=== PATIENT | male | born 1980 | race Caucasian/White ===

== ENCOUNTER 2022-03-30 20:56 | Emergency (ER) | payer OTHER, SELFPAY ==
[2022-03-30 21:15] VITALS: BP 141/81; PULSE 74; RESP 16; TEMP 36.9; O2SAT 97; BMI 27.8
[2022-03-30 21:31] VITALS: BP 139/95; PULSE 70; O2SAT 96
[2022-03-30 21:31] LABS: Microscopic, Urine URINE MICROSCOPIC (MICROSCOPIC)
[2022-03-30 21:33] LABS: Chloride 107 mmol/L (98-107); Sodium 140 mmol/L (136-145)
--- NOTE | 2022-03-30 21:33 | HMH.EDGENADL ---
ED Disposition Clinical Impression: Diverticulitis Disposition: Home, Self-Care Condition on Discharge: Fair Instructions: DI for Diverticulitis Additional Instructions: You have been evaluated for abdominal pain, diagnosed with diverticulitis. Please take antibiotics as prescribed, ciprofloxacin and Flagyl. Take ibuprofen for pain. [place] for extreme pain. Zofran for nausea. Follow a clear liquid diet. Monitor your symptoms closely. Follow-up with your primary care doctor in 1 to 2 days for symptom recheck. Follow-up with general surgery in clinic this week. Return to the emergency department for any new or worsening symptoms. Prescriptions: Hydrocod/Acet 5/325 mg [[place] 5/325mg tablet] 1 tab PO Q6HP PRN #6 tab PRN Reason: Severe Pain Transmission Status: Sent to [facility] # ondansetron HCL [Ondansetron 4mg tab*] 4 mg PO Q6HP PRN #12 tab PRN Reason: Nausea Transmission Status: Pending to [facility] # Ciprofloxacin HCl [Ciprofloxacin 250mg Tab] 500 mg PO BID #20 tab Transmission Status: Pending to [facility] # metroNIDAZOLE [metroNIDAZOLE 500mg Tablet] 500 mg PO Q8 #15 tab Transmission Status: Pending to [facility] # Referrals: Alexandr Whitehead APRN [Primary Care Provider] - Jaden Uribe MD [Staff Physician] - Time of Disposition: 23:08 - Critical Care Critical Care Time: No Attestation: On 03/30/22, the high probability of a clinically significant, sudden or life threatening deterioration of the following system(s) required my full and direct attention, intervention and personal management. The time I documented below is in addition to time spent performing reported procedures but includes the following listed in this critical care notation. Medical Decision Making - Medical Records Medical records reviewed: Yes: I reviewed the patient's medical records. - Earnest Inquiry Pt receiving controlled substance: No Vital Signs: 03/30/22 21:15 Temperature 98.4 F Temperature Source Oral Pulse Rate [Left Radial] 74 Respiratory Rate 16 Blood Pressure [Right Arm] 141/81 H Blood Pressure Mean [Right Arm] 101 Blood Pressure Source [Right Arm] Automatic Cuff Blood Pressure Position [Right Arm] Sitting 02 Sat by Pulse Oximetry 97 Oxygen Delivery Method Room Air - Lab Data Lab Results 03/30/22 21:18: Urine Color Yellow, Urine Appearance Clear, Urine pH 6.0, Ur Specific [place] 1.020, Urine Protein Negative, Urine Glucose (UA) Negative, Urine Ketones Negative, Urine Blood Trace-i, Urine Nitrate Negative, Urine Bilirubin Negative, Urine Urobilinogen 0.2, Ur Leukocyte Esterase Negative, Urine RBC Occasional, Urine WBC None, Ur Squamous Epith Cells Occasional, Urine Bacteria None 03/30/22 21:18: WBC 9.7, RBC 4.27 L, Hgb 13.3 L, Hct 41.0 L, MCV 96.0 H, MCH 31.1, MCHC 32.4, RDW 13.2, Plt Count 271, MPV 7.2 L, Neut % (Auto) 66.0, Lymph % (Auto) 23.7, [place] % (Auto) 8.1, Eos % (Auto) 1.4, Baso % (Auto) 0.8, Neut # (Auto) 6.4, Lymph # (Auto) 2.3, [place] # (Auto) 0.8, Eos # (Auto) 0.1, Baso # (Auto) 0.1 03/30/22 21:18: Sodium 140, Potassium 3.9, Chloride 107, Carbon Dioxide 26, Anion Gap 10.9, BUN 17, Creatinine 1.10, Estimated Creat Clear 117, Estimated GFR 74, Est GFR ( Amer) 90, Glucose 109 H, Calcium 9.3, Total Bilirubin 0.2, AST 42, ALT 37, Alkaline Phosphatase 80, Total Protein 7.5, Albumin 4.6, Globulin 2.9, Albumin/Globulin Ratio 1.6, Lipase 85 03/30/22 21:33: SARS-CoV-2 (PCR) Not detected, Influenza A Untype (PCR) Not detected, Influenza Type B (PCR) Not detected Result diagrams: 03/30/22 21:18 03/30/22 21:18 Orders (Tests/Meds): ED MEDICATIONS Generic Name Dose Route Start Last Admin Trade Name Freq PRN Reason Stop Dose Admin Sodium Chloride 10 ml 03/30/22 21:20 03/30/22 21:42 Sodium Chloride 0.9% 10ml Flush Syringe IV 04/29/22 21:19 10 ml NEEDED PRN Administration Maintain IV Site Discontinued Medicati
[2022-03-30 21:34] LABS: Basophils # 0.1 K/mm3 (0-0.2); Basophils % 0.8 % (0.1-2.0); Eosinophils # 0.1 K/mm3 (0.0-0.4); Eosinophils % 1.4 % (0.1-12.0); Hemoglobin 13.3 g/dL (14.1-18.0); Lymphocytes # 2.3 K/mm3 (0.7-4.5); Lymphocytes % 23.7 % (10-50); Mean Corpuscular HGB Conc 32.4 g/dL (31.8-35.4); Mean Corpuscular Hemoglobin 31.1 pg (27.0-31.2); Mean Platelet Volume 7.2 fl (7.4-10.4); Monocytes # 0.8 K/mm3 (0.1-1.0); Monocytes % 8.1 % (1.7-9.3); Neutrophils # 6.4 K/mm3 (1.8-7.8); Platelet Count 271 K/mm3 (142-424); Potassium 3.9 mmoL/L (3.5-5.1); Red Blood Count 4.27 M/mm3 (4.60-6.20); Red Cell Distribution Width 13.2 % (11.5-17.5); White Blood Count 9.7 K/mm3 (4.8-10.8)
[2022-03-30 21:35] LABS: Appearance,Urine CLEAR (Clear); Bilirubin,Urine Negative (Negative); Blood, Urine TRACE-I (Negative); Color,Urine YELLOW (Yellow); Glucose,Urine (UA) Negative (Negative); Ketones,Urine Negative (Negative); Leukocyte Esterase,Urine Negative (Negative); Nitrate,Urine Negative (Negative); Protein,Urine Negative (Negative); Urobilinogen,Urine 0.2 EU/dl (0.2)
[2022-03-30 21:35] LABS: Coronavirus 19, PCR Not Detected (NotDetected); Influenza A, PCR Not Detected (NotDetected); Influenza B, PCR Not Detected (NotDetected)
[2022-03-30 21:36] LABS: Alanine Aminotransferase 37 U/L (12-78); Albumin Level 4.6 g/dl (3.5-5.0); Albumin/Globulin Ratio 1.6 (1.1-1.8); Alkaline Phosphatase 80 U/L (38-126); Anion Gap 10.9 mEq/L (5-15); Aspartate Amino Transferase 42 U/L (17-59); Bilirubin,Total 0.2 mg/dl (0.2-1.3); Blood Urea Nitrogen 17 mg/dl (9-20); Calcium 9.3 mg/dl (8.4-10.2); Carbon Dioxide 26 mmol/L (22.0-30.0); Creatinine Clearance Estimated 117 mL/min (50-200); Estimated Glomerular Filt Rate 74 ml/min (>60); GFR (African American) 90 ML/MIN (>60); Globulin 2.9 g/dL (1.3-3.2); Glucose 109 mg/dl (74-100); Lipase 85 U/L (23-300); Total Protein,Serum 7.5 g/dl (6.3-8.2)
--- NOTE | 2022-03-30 21:36 | CT_ITS ---
PROCEDURE INFORMATION: Exam: CT Abdomen And Pelvis With Contrast Exam date and time: 03/30/2022 9:46 PM Age: 42 years old Clinical indication: Abdominal pain; Localized; Right lower quadrant (rlq); Additional info: Rlq pain TECHNIQUE: Imaging protocol: Computed tomography of the abdomen and pelvis with contrast. Radiation optimization: All CT scans at this facility use at least one of these dose optimization techniques: automated exposure control; mA and/or kV adjustment per patient size (includes targeted exams where dose is matched to clinical indication); or iterative reconstruction. Contrast material: ISOVUE; Contrast volume: 75 ml; Contrast route: IV; COMPARISON: No relevant prior studies available. FINDINGS: Diaphragm: Small hiatal hernia. Liver: Tiny cysts in the right lobe of the liver. Gallbladder and bile ducts: Normal. No calcified stones. No ductal dilation. Pancreas: Normal. No ductal dilation. Spleen: Normal. No splenomegaly. Adrenal glands: Normal. No mass. Kidneys and ureters: Normal. No hydronephrosis. Stomach and bowel: There is acute diverticulitis involving the sigmoid colon with wall thickening, diverticula and surrounding inflammatory changes. No small bowel obstruction. Appendix: No evidence of appendicitis. Intraperitoneal space: Unremarkable. No free air. No significant fluid collection. Vasculature: Unremarkable. No abdominal aortic aneurysm. Lymph nodes: Unremarkable. No enlarged lymph nodes. Urinary bladder: Unremarkable as visualized. Reproductive: Unremarkable as visualized. Bones/joints: Unremarkable. No acute fracture. Soft tissues: Unremarkable. IMPRESSION: Acute sigmoid diverticulitis. No perforation or abscess.
[2022-03-30 22:00] VITALS: BP 141/98; PULSE 69; O2SAT 97
[2022-03-30 22:00] LABS: RBC,Urine Occasional #/hpf (0-3); Squamous Epithelial Cell,Urine Occasional #/hpf (0-5)
[2022-03-30 22:30] VITALS: BP 132/90; PULSE 65; O2SAT 97
[2022-03-30 23:00] VITALS: BP 122/82; PULSE 61; RESP 16; TEMP 36.9; O2SAT 97
[2022-03-30 23:01] VITALS: BP 122/62; PULSE 62; RESP 16; TEMP 36.9; O2SAT 98
== END 2022-03-30 23:25 | disposition home or self-care (01) ==
PROVIDERS: Emergency Provider Emergency Medicine; PCP Nurse Practitioner Family
DX: K57.32 Diverticulitis of large intestine without perforation or abscess without bleeding (principal)
CPT/HCPCS: 74177; 80053; 81001; 83690; 85025; 96374; 99284; C9803; Q9967; U0003; U0005

== ENCOUNTER → 2022-05-27 11:39 | Outpatient (CLI) | payer OTHER, SELFPAY ==
[2022-05-27 11:46] VITALS: BMI 26.4
== END | disposition home or self-care (01) ==
PROVIDERS: PCP Nurse Practitioner Family; Visit Provider Nurse Practitioner Family
DX: Z02.1 Encounter for pre-employment examination (principal)
CPT/HCPCS: 86580

== ENCOUNTER 2023-01-26 10:59 | Outpatient (RCR) | payer OTHER, SELFPAY ==
--- NOTE | 2023-01-26 13:05 | HMH.OTOPEV ---
OT Inpatient Evaluation Rehab OT Outpatient Eval Start: 01/26/23 12:14 Freq: Status: Active Protocol: Document 01/26/23 12:14 ILANLATASHA (Rec: 01/26/23 12:57 CHELSEYTAMIKO [id number]) E-signed By Luanne Bruno, OT Outpatient Therapy Subjective History Subjective History 42 year male referred to OP OT services for B lateral epicondylitis for the past 12- 13 years, however the pain has increased for the past 1-2 months. B UE elbow AROM is WNL . Chief Complaint Pain Symptom Type Ache Symptoms Relieved By Nothing Symptoms Aggravated By Physical Activity Prior Functional Limitations None Current Functional Limitations Recreation Activity Level of pain today (0-10) 2 Pain scale - at its best (0-10) 2 Pain scale - at its worst (0-10) 7 Wrist/Hand Eval Concrete Vibrator Operator/Pinch Strength Right Concrete Vibrator Operator Strength Measurement (lbs) 110 Left Concrete Vibrator Operator Strength Measurement (lbs) 130 OT Outpatient Assessment Impairments Problems/Impairments Subjective C/O Pain Prognosis Rehab Potential Good Clinical Impression Consistent with Diagnosis Yes Short Term Goals Number of Weeks 2 Decrease Subjective C/O Pain Yes: 6/10 pain at worst Alf Goals Number of Weeks 4 Decrease Subjective C/O Pain Yes: 5/10 pain at worst Outpatient Therapy Plan of Care Treatment Plan May Include Therapeutic Exercise Including Home Yes Exercise Program Manual Therapy Techniques Yes Therapeutic Activities to Return to Yes Previous Functional/Work Level Thermal Modalities Yes Electrical Stimulation Yes Ultrasound/Phonophoresis Yes Iontophoresis Yes Eval/Re-Eval Yes Aquatic Therapy Yes Frequency Times per week 1-2x/wk Duration Number of Weeks 4 weeks Addendums This patient is a candidate for social No or vocational rehab? Patient/Guardian verbally acknowledges Yes understanding of treatment program and consents to further treatment? Patient/Guardian verbally acknowledges Yes understanding of diagnosis, prognosis and goals for treatment? G -code Required No Eval Complexity OT Charge 00211 - Low Complexity Shoulder/Elbow Eval Shoulder Objective Measurements Elbow Objective Measurements PHYSICIAN CERTIFICATION: I certify the specified therapy services for Arsalan Moy Francisco are required, authorized, and reviewed every 30 days.
== END 2023-01-26 11:00 | disposition home or self-care (01) ==
LOC: OT 10:59
PROVIDERS: Visit Provider Nurse Practitioner Family
DX: M77.12 Lateral epicondylitis, left elbow (principal); M77.11 Lateral epicondylitis, right elbow
CPT/HCPCS: 97165

== ENCOUNTER 2023-12-20 12:31 | Emergency (ER) | payer SELFPAY ==
[2023-12-20 12:33] VITALS: BP 146/104; PULSE 78; RESP 18; TEMP 36.6; O2SAT 100; BMI 24.4
--- NOTE | 2023-12-20 12:43 | PC.NURSE ---
dr gupta at bedside
--- NOTE | 2023-12-20 13:03 | HMH.EDGENADL ---
Discharge Plan Disposition Patient Disposition: Home, Self-Care Prescriptions Prescriptions: No Action prednisone 20 mg tablet 20 mg PO BID 5 Days Qty: 10 0RF naproxen 500 mg tablet 500 mg PO BID Qty: 30 0RF omeprazole 20 MG capsule,delayed release(DR/EC) 20 mg PO DAILY Referrals Follow up/Referrals: Alexandr Whitehead APRN [Primary Care Provider] - See instructions Activity Restrictions/Add. Instructions Additional Instructions/Restrictions: You may apply ice take ibuprofen and use ice on locations of pain and swelling. Expect the bruising around her eyes to get worse over the next several days. This should resolve over time. Your sutures are self absorbing and no further care is needed aside from local wound care as discussed. Please return with any significant spreading redness or pus or high fevers or other concerns. Clinical Impressions Clinical Impression: Concussion, Facial laceration Instructions Patient Instructions: DI for Laceration Repair Discharge ED Provider: Tanmay Garza General Adult HPI General Chief complaint: Wound/Laceration Stated complaint: WC-Laceration above L eye Time Seen by Provider: 12/20/23 12:42 Mode of Arrival: Ambulatory Source of Information: Patient Limitations: No Limitations Description of Symptoms (Recalled from ER Triage Doc. by RN): PT WITH LACERATION TO LEFT EYE BROW. PT AT WORK TAKING PRESSURIZED LID OF BEER KEG AND LID STRUCK EYE BROW. DENIES LOC. NO VISUAL DISTURBANCE. REPORTS HEADACHE History of Present Illness HPI narrative: Patient is a 43-year-old male presents today with an eyebrow laceration. States he was taking a pressurized lid off of a beer keg and it struck him as a projectile into the left superior lateral aspect of his eyelid. No eye injury itself. Visual acuity is normal. States he did feel little disoriented when this first happened. Does not any anticoagulants or antiplatelet agents. Otherwise feels normal at the moment no other injuries. Tetanus is updated 2 years ago. Related Data Home Medications Medication Instructions Recorded Confirmed omeprazole 20 mg capsule,delayed 20 mg PO DAILY GERD 03/30/22 01/14/23 release Previous Rx's Medication Instructions Recorded naproxen 500 mg tablet 500 mg PO BID #30 tabs 01/14/23 prednisone 20 mg tablet 20 mg PO BID 5 days #10 tabs 01/14/23 Allergies Allergy/AdvReac Type Severity Reaction Status Date / Time No Known Allergies Allergy Verified 01/14/23 11:10 [facility] Disclaimer: The information contained in this section may have been updated after the patient was seen, as this information can be updated by other users. Social History Smoking Status: Never smoker alcohol intake: current substance use type: denies use current occupational status: retired and disabled Travel in the last 8 weeks: None ROS Obtained: Yes All systems reviewed & no additional complaints except as documented Physical Exam General General appearance: alert and in no apparent distress Expanded Eye Exam Both Eyes Image: 1. laceration Respiratory Respiratory exam: Present normal lung sounds bilaterally Cardiovascular Cardiovascular exam: Present regular rate Neurological Exam Neurological exam: Present alert and oriented X3 Medical Decision Making Earnest Inquiry Pt receiving controlled substance: No Vital Signs: 12/20/23 12:33 Temperature 97.9 F Temperature Source Oral Pulse Rate [Radial] 78 Respiratory Rate 18 Blood Pressure [Left Arm] 146/104 H Blood Pressure Mean [Left Arm] 118 Blood Pressure Source [Left Arm] Automatic Cuff Blood Pressure Position [Left Arm] Sitting 02 Sat by Pulse Oximetry 100 Oxygen Delivery Method Room Air Medical Decision Narrative: 43-year-old GCS of 15 normal neurologic exam no significant step-offs around the orbital rim presents today with another laceration and clinically a mild concussion. No indication for any CT imaging patient's [place] CT head negative Nexus negative. Laceration was repaired wound management and wound care discussed return precautions emphasized patient discharged in stable condition. Procedures Laceration Laceration 1: Site: face Side (If applicable): left Size (cm): 2.5 Description: linear Depth: simple, single layer Local Anesthetic: lidocaine 1% and with epi Amount of anesthesia used (mL): 5 Pre-repair: wound explored and irrigated extensively Size (cm): 5-0 (Fast gut) Number of sutures: 5 Technique: simple, interrupted Critical Care Critical Care Time Critical Care Time: No
[2023-12-20] MEDS: ACETAMINOPHEN 500MG TAB 1000 MG PO (13:10)
[2023-12-20] MEDS: IBUPROFEN 600 MG TABLET PO (13:10)
[2023-12-20] MEDS: LIDOCAINE 1% W/EPI 1:100,000 20ML VIAL 5 ML SQ (13:12)
[2023-12-20 13:13] VITALS: BP 138/92; PULSE 78; RESP 18; TEMP 36.6; O2SAT 100
== END 2023-12-20 13:15 | disposition home or self-care (01) ==
PROVIDERS: Emergency Provider Student in an Organized Health Care Education/Training Program; PCP Nurse Practitioner Family
DX: S06.0X0A Concussion without loss of consciousness, initial encounter (principal); S01.81XA Laceration without foreign body of other part of head, initial encounter; W20.8XXA Other cause of strike by thrown, projected or falling object, initial encounter
CPT/HCPCS: 12011; 99284

== ENCOUNTER 2024-01-08 15:33 | Emergency (ER) | payer SELFPAY ==
[2024-01-08 15:50] VITALS: BP 150/98; PULSE 75; RESP 20; TEMP 36.7; O2SAT 98; BMI 25.2
--- NOTE | 2024-01-08 16:05 | ED_ITS ---
Discharge Plan Disposition Patient Disposition: Home, Self-Care Condition: Good Prescriptions Prescriptions: New azithromycin [Zithromax Z-[place]] 250 mg tablet See Rx Instructions .ROUTE .COMPLEX 5 Days Qty: 6 0RF Rx Instructions: For 250 mg dose pack: take 500 mg today (day 1), then 250 mg for 4 days (days 2-5) methylprednisolone [Medrol ([place])] 4 mg tablets,dose pack See Rx Instructions .Route .COMPLEX 6 Days Qty: 21 0RF Rx Instructions: taper pack; pybxugqozjcpcvz-ovjbmvqia-DY [Bromfed DM] 2-30-10 mg/5 mL syrup 10 ml PO Q6H PRN (Reason: cold symptoms) Qty: 200 0RF ondansetron 4 mg tablet,disintegrating 4 mg PO Q8H PRN (Reason: nausea and vomiting) Qty: 10 0RF guaifenesin [Mucinex] 600 mg tablet extended release 12hr 1,200 mg PO BID PRN (Reason: cough) Qty: 20 0RF No Action pantoprazole 40 mg tablet,delayed release (DR/EC) 40 mg PO DAILY Referrals Follow up/Referrals: Alexandr Whitehead APRN [Primary Care Provider] - See instructions Activity Restrictions/Add. Instructions Additional Instructions/Restrictions: * Start antibiotic today. Be sure to complete entire prescription even if feeling better * Monitor temp. Tylenol every 4 hours as needed and / or ibuprofen every 6 hours as needed ( As long as your primary care physician has told you that it ok to take both. For fever/aches/pains ER if no less than 101 despite Tylenol or Motrin * Humidifier/vaporizer or hot steamy shower * Mucinex during the day for your cough and cough suppressant only at night. Be sure to drink lots of water. *Start steroid today. Helps with inflammation therefore, cough and wheezing. Follow directions on the package. Reviewed side effects. Patient reports taking them before. *Bromfed may cause drowsiness. Know how it effects you (your child) before driving, caring for small child, or sending your child to school. Not other antihistamines/allergy medications while taking bromfed Follow up IMMEDIATELY for new or worsening of symptoms OR no noticeable improvement over the next 48-72 hours. 911 immediately for any life threatening symptoms such as chest pain or difficulty breathing Clinical Impressions Clinical Impression: Sinusitis, Bronchitis Instructions Patient Instructions: DI for Sinusitis, Acute Bronchitis Discharge ED Provider: Brandy Reyes [facility] [place] General Stated complaint: Sore throat,congestion,cough,weakness Mode of Arrival: Ambulatory Source of Information: Patient Limitations: No Limitations Time Seen by Provider: 01/08/24 16:05 Description of Symptoms (Recalled from Triage Doc. by RN): PATIENT C/O COUGH, CONGESTION, SORE THROAT AND FATIGUE X 4 DAYS. HE REPORTS HE DID HAVE SOME BLOOD WITH HIS COUGH. HE STATES HE WAS RECENTLY SICK HEENT Symptoms (Recalled from RN notes): Yes Resp Symptoms (Recalled from RN notes): Yes Skin Symptoms (Recalled from RN notes): No MS Symptoms (Recalled from RN notes): No Functional Status (Recalled from RN notes): WNL History of Present Illness Provider Complaint: Patient states that was recently sick with the flu, States that for the last 4 days he has been having cough, sinus congestion and pressure, sore/scratchy throat at night, and at times he will cough so much he will vomit States today he was still not feeling any better so he came in to get checked Related Data Home Medications Medication Instructions Recorded Confirmed pantoprazole 40 mg tablet,delayed 40 mg PO DAILY 01/08/24 01/08/24 release Previous Rx's Medication Instructions Recorded azithromycin 250 mg tablet See Rx Instructions PO .COMPLEX 5 01/08/24 (Zithromax Z-[place]) days #6 tabs bazvhxlgfoukniz-fcolbmdpswdbebp-VX 10 ml PO Q6H PRN cold symptoms 01/08/24 2 mg-30 mg-10 mg/5 mL oral syrup #200 mL (Bromfed DM) guaifenesin 600 mg tablet, 1,200 mg (2 x 600 mg) PO BID PRN 01/08/24 extended release 12 hr (Mucinex) cough #20 tabs methylprednisolone 4 mg tablets in See Rx Instructions .Route 01/08/24 a dose pack (Medrol ([place])) .COMPLEX 6 days #21 tabs ondansetron 4 mg disintegrating 4 mg PO Q8H PRN nausea and 01/08/24 tablet vomiting #10 tabs Allergies Allergy/AdvReac Type Severity Reaction Status Date / Time No Known Allergies Allergy Verified 01/14/23 11:10 Worker's Comp Is this a Worker's Comp case?: No PFSH PFSH Disclaimer: The information contained in this section may have been updated after the patient was seen, as this information can be updated by other users. Medical History (Updated 01/08/24 @ 16:26 by Brandy Reyes APRN) History of gastroesophageal reflux (GERD) Social History Smoking Status: Never smoker alcohol intake: current alcohol intake frequency: a few times a week substance use type: denies use current occupational status: retired and disabled Travel in the last 8 weeks: None ROS Obtained: Yes All systems reviewed & no additional complaints except as documented and Yes Systems reviewed as appropriate & no additional complaints except as documented Constitutional Constitutional: Reports system reviewed and no additional complaints, except as documented, Reports as per HPI, Reports body ache and Reports headache(s) ENT Ears, Nose, Mouth, and Throat: Reports system reviewed and no additional complaints, except as documented, Reports as per HPI, Reports headache(s), Reports sinus pain, Reports sinus pressure and Reports sore throat Cardiovascular Cardiovascular: Reports system reviewed and no additional complaints, except as documented and Reports as per HPI Respiratory Respiratory: Reports system reviewed and no additional complaints, except as documented, Reports as per HPI, Reports chest congestion, Reports cough and Reports pain with cough Gastrointestinal Gastrointestingal: Reports system reviewed and no additional complaints, except as documented and as per HPI Musculoskeletal Musculoskeletal: Reports system reviewed and no additional complaints, except as documented and Reports as per HPI Neurologic Neurologic: Reports headache(s) Physical Exam General General appearance: alert and in no apparent distress ENT ENT exam: Present mucous membranes moist Expanded ENT Exam Nose exam: Present sinus tenderness Throat exam: Present other (PND noted) Respiratory Respiratory exam: Present normal lung sounds bilaterally; Absent respiratory distress or wheezes Cardiovascular Cardiovascular exam: Present regular rate, normal rhythm and normal heart sounds Abdominal Exam Abdominal exam: Present soft and normal bowel sounds; Absent distention or tenderness Neurological Exam Neurological exam: Present alert, oriented X3 and normal gait Medical Decision Making Earnest Inquiry Pt receiving controlled substance: No Earnest was queried for this patient: No Vital Signs: 01/08/24 15:50 Temperature 98.1 F Temperature Source Oral Pulse Rate [Left Brachial] 75 Respiratory Rate 20 Blood Pressure [Left Arm] 150/98 H Blood Pressure Mean [Left Arm] 115 Blood Pressure Source [Left Arm] Automatic Cuff Blood Pressure Position [Left Arm] Sitting 02 Sat by Pulse Oximetry 98 Lab Data Lab results reviewed: Yes I reviewed the patient's lab results.
[2024-01-08 16:14] LABS: UTC Influenza A Antigen Negative (Negative); UTC Influenza B Antigen Negative (Negative); UTC Strep Screen (Rapid) Negative (Negative)
[2024-01-08 16:34] VITALS: BP 150/98; PULSE 75; RESP 20; TEMP 36.7; O2SAT 98
== END 2024-01-08 16:54 | disposition home or self-care (01) ==
PROVIDERS: Emergency Provider Nurse Practitioner; PCP Nurse Practitioner Family
DX: J20.9 Acute bronchitis, unspecified (principal); J01.90 Acute sinusitis, unspecified; R07.0 Pain in throat; R05.9 Cough, unspecified; R09.81 Nasal congestion
CPT/HCPCS: 87804; 87880; 99204; 99212; G0463

== ENCOUNTER 2024-05-09 09:14 | Outpatient (CLI) | payer OTHER, SELFPAY ==
[2024-05-09 19:02] LABS: Basophils % 0.7 % (0.1-2.0); Eosinophils # 0.1 K/mm3 (0.0-0.4); Eosinophils % 1.5 % (0.1-12.0); Lymphocytes # 1.6 K/mm3 (0.7-4.5); Lymphocytes % 45.6 % (10-50); Mean Corpuscular HGB Conc 32.5 g/dL (31.8-35.4); Mean Corpuscular Hemoglobin 31.9 pg (27.0-31.2); Mean Corpuscular Volume 98.1 fl (80-94); Mean Platelet Volume 7.8 fl (7.4-10.4); Monocytes # 0.5 K/mm3 (0.1-1.0); Monocytes % 14.2 % (1.7-9.3); Neutrophils # 1.4 K/mm3 (1.8-7.8); Platelet Count 202 K/mm3 (142-424); Red Blood Count 4.08 M/mm3 (4.60-6.20); Red Cell Distribution Width 13.9 % (11.5-17.5); White Blood Count 3.5 K/mm3 (4.8-10.8)
[2024-05-09 19:40] LABS: Alanine Aminotransferase 27 U/L (12-78); Albumin Level 4.3 g/dl (3.5-5.0); Albumin/Globulin Ratio 1.5 (1.1-1.8); Alkaline Phosphatase 58 U/L (38-126); Anion Gap 11.5 mEq/L (5-15); Aspartate Amino Transferase 38 U/L (17-59); Bilirubin,Total 0.5 mg/dl (0.2-1.3); Blood Urea Nitrogen 15 mg/dl (9-20); Calcium 8.9 mg/dl (8.4-10.2); Carbon Dioxide 22 mmol/L (22.0-30.0); Chloride 109 mmol/L (98-107); Chol/HDL Ratio 3.6 (1-3.5); Cholesterol 205 mg/dl (140-200); Estimated Glomerular Filt Rate 124 ml/min (>60); GFR (African American) 150 ML/MIN (>60); Globulin 2.9 g/dL (1.3-3.2); Glucose 91 mg/dl (74-100); HDL Cholesterol 57 mg/dl (40-60); Potassium 4.5 mmoL/L (3.5-5.1); Sodium 138 mmol/L (136-145); Total Protein,Serum 7.2 g/dl (6.3-8.2); Triglycerides 105 mg/dl (30-150); VLDL Cholesterol 21 mg/dL (0-40)
[2024-05-09 19:51] LABS: Direct LDL Cholesterol 108.81 mg/dL (100-129)
[2024-05-09 20:00] LABS: 25-OH Vitamin D, Total 39.1 ng/mL (30-100)
[2024-05-09 20:14] LABS: Thyroid Stimulating Hormone 2.24 uIU/mL (0.465-4.68)
== END 2024-05-09 23:59 | disposition home or self-care (01) ==
LOC: LAB.DROPOF 05-11 09:15
PROVIDERS: PCP Nurse Practitioner Family; Visit Provider Nurse Practitioner Family
DX: Z87.19 Personal history of other diseases of the digestive system (principal); R05.1 Acute cough; R06.02 Shortness of breath
CPT/HCPCS: 80050; 80053; 80061; 82306; 84443; 85025; G0103